=== PATIENT | male | born 1970 | race American Indian/Alaskan Native ===

== ENCOUNTER 2016-07-28 15:05 | Emergency (ER) | payer MEDICARE, OTHER ==
--- NOTE | 2016-07-28 15:13 | ED PDOC ---
Arrival/HPI - General Time Seen by Provider: 07/28/16 15:05 Historian: Patient, EMS - History of Present Illness Narrative History of Present Illness (Text): 07/28/16 15:10 45 y/o male, pmh including htn/hyperlipidemia/dm/pancreatitis with surgery about [address] [facility] in [place], [place], nkda, biba c/o lt. sided abdominal pain x 1 day with no fall or trauma. Pt. stated that he had 2- 3 shots of rum last night, woke up this morning with the acute onset of the lt. sided upper abdominal pain with nausea and vomiting but no gross hemoptysis, no fever or chills, no urinary symptoms, no dizziness, no other medical or psychological complaints. \\ Past Medical History - Provider Review Nursing Documentation Reviewed: Yes Family/Social History - Physician Review Nursing Documentation Reviewed: Yes Family/Social History: Unknown Family HX Allergies/Home Meds Allergies/Adverse Reactions: Allergies No Known Allergies Allergy (Verified 07/28/16 15:11) Home Medications: Home Meds Medication Instructions Recorded Confirmed Insulin Aspart [Novolog Flexpen] 35 units SUBCUT QAM 07/28/16 07/28/16 Insulin Glargine, Recombina 35 units SUBCUT HS 07/28/16 07/28/16 [Lantus] Lisinopril [Zestril] 2.5 mg PO DAILY 07/28/16 07/28/16 Metformin ER [Glucophage XR] 500 mg PO DAILY 07/28/16 07/28/16 Simvastatin 10 mg PO HS 07/28/16 07/28/16 Review of Systems - Review of Systems Constitutional: absent: Fatigue, Fevers Eyes: absent: Vision Changes ENT: absent: Hearing Changes Respiratory: absent: Cough, Sputum Cardiovascular: absent: Chest Pain Gastrointestinal: Abdominal Pain, Nausea, Vomiting. absent: Constipation, Diarrhea Musculoskeletal: absent: Arthralgias, Back Pain, Neck Pain, Joint Swelling, Myalgias Skin: absent: Rash, Pruritis, Skin Lesions, Laceration, Abscess, Ulcer, Cellulitis Neurological: absent: Headache, Dizziness, Focal Weakness, Gait Changes, Speech Changes, Facial Droop, Disequilibrium, Seizure Psychiatric: absent: Anxiety, Depression, Suicidal Ideation Physical Exam Vital Signs Temp Pulse Resp BP Pulse Ox 07/28/16 19:32 80 16 98 07/28/16 19:31 98.1 F 80 16 150/81 99 07/28/16 15:15 97.7 F 77 18 153/93 H 99 Pain Distress: Severe Mental Status: Positive for: Alert and Oriented X 3 - Systems Exam Head: Present: Atraumatic, Normocephalic Pupils: Present: PERRL Extroacular Muscles: Present: EOMI Conjunctiva: Present: Normal Mouth: Present: Moist Mucous Membranes Neck: Present: Normal Range of Motion Respiratory/Chest: Present: Clear to Auscultation, Good Air Exchange. No: Respiratory Distress, Accessory Muscle Use Cardiovascular: Present: Regular Rate and Rhythm, Normal S1, S2. No: Murmurs Abdomen: Present: Tenderness (Lt. sided tenderness ), Normal Bowel Sounds, Rebound (Lt. sided tenderness ), Scars (visible surgical scars noted on the anterior abdomen region with no signs of infection). No: Distention, Peritoneal Signs Back: Present: Normal Inspection Upper Extremity: Present: Normal Inspection. No: Cyanosis, Edema Lower Extremity: Present: Normal Inspection. No: Edema Neurological: Present: GCS=15, Speech Normal, Motor Func Grossly Intact, Gait Normal, Memory Normal Skin: Present: Warm, Dry, Normal Color. No: Rashes Lymphatic: No: Cervical Adenopathy Psychiatric: Present: Alert, Oriented x 3, Normal Insight, Normal Concentration Medical Decision Making ED Course and Treatment: 07/28/16 15:13 -labs/lipase/ua -CT abdomen and pelvis -IVF/morphine/zofran/pepcid -Observe and reassess 07/28/16 15:58 -Labs are non-significant except lipase 451 -Chest x-ray show no acute findings. -Pending CT abdomen and pelvis. 07/28/16 17:00 -Pt. still has pain, morphine 4mg IV ordered. -Pending CT abdomen and pelvis result. 07/28/16 17:52 -CT abdomen and pelvis show chronic pancreatitis vs. gastritis vs. duodenitis vs. pepcid ulcer vs. liver lesion (benign vs. malignant) vs. diverticular without diverticulitis. -I discussed the CT results in full detail with the patient including about possible malignant lesions which he has to follow up with the GI. -Pt. request more medication, GI Cocktail ordered. -IVF finished, will continue. 07/28/16 18:56 -Pt. stated that he feels better now but not completely relief, stated that he has to go and doesn't wanna wait for further evaluation including admission with GI consult. Pt. stated that today is his son's birthday which he wants to go but only need pain medication. Pt. stated that he has this pain frequently and knows how to treat pancreatitis at home as he has frequently pancreatitis. -I reviewed the [facility] report which I am unable to locate this patient's record. I will give PPI/zofran/percocet with clear fluid diet plus strict direction to follow up with the GI and return to the ER if he wishes to continue the care. AMA ER The patient refuses to stay in the Emergency Room (ER) to continue the care and wishes to leave the emergency department against my medical advice. Patient was told that staying in the ER is necessary and a full explanation of the reasons why was given, and understood by the patient with alert and oriented x4. The risk of leaving were explained in laymans term and including but not limited gastric perforation, gastrointestinal bleeding, cancer, tumors, dehydration, diabetic ketoacidosis, pain, worsening of condition, permanent disability and from an undiagnosed or untreated condition. The patient accepts these risks, and is in my judgment is competent and capable of understanding the clinical situation and explanation of the risk of leaving. Patient was given the opportunity to ask questions and change mind. The patient was instructed regarding the best care for the present symptoms, and to follow up as soon as possible with the primary care doctor including specialist or return to the emergency department at an y time for continuing care. YOU ARE OFFER TO BE ADMITTED TO THE HOSPITAL FOR FURTHER EVALUATION BUT YOU DECLINED. YOU ARE GIVEN PROTONIX/ZOFRAN/PERCOCET FOR YOUR CONDITION BUT YOU HAVE TO FOLLOW UP WITH YOUR OWN PMD AND GI WITHIN 1-2 DAYS. YOU MAY RETURN TO THE ER ANY TIME IF YOU WISHES TO CONTINUE THE MEDICAL CLEAR. CLEAR FLUID DIET AND AVOID SMOKING/DRINKING/HIGH CARB DIET. 07/28/16 20:09 - Lab Interpretations Lab Results: 07/28/16 15:30 07/28/16 15:30 Lab Results 07/28/16 15:30: WBC 7.5, RBC 4.88, Hgb 15.5, Hct 43.7, MCV 89.5, MCH 31.8, MCHC 35.5, RDW 13.8, Plt Count 255, MPV 10.9, Gran % 76.8 H, Lymph % (Auto) 17.4 L, Garrard % (Auto) 5.4, Eos % (Auto) 0.3 L, Baso % (Auto) 0.1, Gran # 5.73, Lymph # 1.3, Garrard # 0.4, Eos # 0.0, Baso # 0.01, Sodium 137, Potassium 4.1, Chloride 101 , Carbon Dioxide 27, Anion Gap 13, BUN 17, Creatinine 0.8, Est GFR ( Amer ) > 60, Est GFR (Non-Af Amer) > 60, Random Glucose 145 H, Calcium 8.8, Magnesium 1.8, Total Bilirubin 0.9, AST 33, ALT 47, Alkaline Phosphatase 73, Total Protein 7.3, Albumin 3.7, Globulin 3.7, Albumin/Globulin Ratio 1.0 L, Amylase 130 H, Lipase 451 H, Alcohol, Quantitative < 10 07/28/16 15:27: POC Glucose (mg/dL) 159 H Interpretation: Abnormal lab values (lipase 451) - RAD Interpretation Radiology Orders: 07/28/16 15:14 ABD & PELVIS IV CONTRAST ONLY [CT] Stat 07/28/16 15:16 CHEST PORTABLE [RAD] Stat Chest x-ray: no active disease CT abdomen and pelvis: PROCEDURE: CT Abdomen and pelvis dated 07/28/2016. . HISTORY: Lt. upper quadrant pain x 1 day, pancreatitis hist COMPARISON: None. TECHNIQUE: Contiguous axial images of the abdomen and pelvis performed in standard fashion following oral and intravenous injection of approximately 98 cc of Omnipaque 350 contrast material. Additional 2 dimensional sagittal and coronal reformats provided. Radiation dose: Total exam DLP = 907.28 mGy-cm. This CT exam was performed using one or more of the following dose reduction techniques: Automated exposure control, adjustment of the mA and/or kV according to patient size, and/or use of iterative reconstruction technique. FINDINGS: LOWER THORAX: Lung bases are clear. No infiltrate effusion or pneumothorax. There appears to be a tiny hiatal hernia. Heart size is within range of normal. No pericardial effusion. LIVER: Liver is enlarged measuring approximately 20.5 cm in CC dimension. Liver exhibits slightly heterogeneous low attenuation suggesting fatty hepatic infiltration however other infiltrative hepatocellular disease process not excluded. There is a small approximately at 2.1 x 1.3 cm elliptical shaped low- attenuation focus within the right lobe of the liver with Hounsfield units in the mid 40s ; of uncertain etiology. There appears to be a tiny calcification along the posterior border of this low-attenuation focus which is of uncertain etiology. Follow-up dedicated triple phase CT scan the liver recommended for further evaluation to distinguish benign versus malignant pathology GALLBLADDER AND BILE DUCTS: Gallbladder is physiologically distended. No evidence of intraluminal gallbladder calculi. PANCREAS: The pancreatic duct distally is markedly ectatic and dilated possibly related to sequela of chronic pancreatitis. There is also a localized area of diminished pancreatic parenchyma in the midbody region which on could conceivably represent sequela of surgery given the patient's history of same. Clinical correlation recommended with surgical history is therefore recommended. . No definitive on evidence of acute pancreatitis seen at this time. SPLEEN: Spleen exhibits normal size and attenuation pattern without mass collection or calcification. ADRENALS: Slightly prominent left adrenal gland. KIDNEYS AND URETERS: Kidneys exhibit symmetric nephrograms. No evidence of nephrolithiasis or hydronephrosis. No obvious renal mass or collection. BLADDER: Urinary bladder is incompletely distended which may account for thick-walled appearance. Muscular hypertrophy may contribute. Possibility of cystitis not excluded. REPRODUCTIVE: Prostate gland measures approximately 5.3 cm in transverse dimension. Prostatic calcifications are present. Correlation with PSA recommended as well. APPENDIX: Normal-appearing appendix. BOWEL: Evaluation of the bowel is somewhat limited due to the lack of oral contrast material. Marked thickening and possibly at edema within the wall of the distal stomach/pyloric region and proximal duodenum. Findings suggest the an inflammatory process such is a gastritis/duodenitis. Peptic ulcer or other intrinsic/ invasive wall lesion cannot be excluded. Endoscopy is recommended. . No evidence of acute mechanical small bowel obstruction. Stool and air seen throughout the colon. . There does appear to be a few scattered colonic diverticula along the sigmoid colon with mild wall thickening which could be due to some combination of underdistention peristalsis and adherent under opacified stool. No obvious inflammatory changes seen within the adjacent mesentery to suggest acute diverticulitis at this time. PERITONEUM: No gross free intraperitoneal air. No free or loculated fluid collections. Tiny fat containing umbilical hernia. LYMPH NODES: No significant bulky lymphadenopathy. VASCULATURE: No evidence of abdominal aortic aneurysm. BONES: No fracture or destructive lesion. OTHER FINDINGS: None. IMPRESSION: Marked wall thickening and or edema distal stomach and proximal duodenum on suggesting a gastritis/duodenitis on however peptic ulcer and or other intrinsic /invasive wall lesion not excluded. Recommend followup bulla endoscopy. There is also abnormality of the mid body of the pancreas dilatation of the pancreatic duct at the level of the mid and distal body region likely related to sequela of chronic pancreatitis. Mild hepatomegaly with suspected fatty infiltration however other infiltrative hepatocellular disease process not excluded. Small elliptical shaped low-attenuation lesion within the medial aspect right lobe liver accessory small calcification along posterior border. This focus is of uncertain etiology however recommend triple phase CT scan of the liver to distinguish benign versus malignant pathology. There are a few small colonic diverticula along the sigmoid colon with slight wall thickening likely due to some combination of underdistention, peristalsis and possibly some adherent under opacified stool. The possibility of muscular hypertrophy may contribute. No obvious inflammatory changes in the adjacent mesentery to suggest acute diverticulitis at this time. Clinic correlation recommended. Note all these findings were discussed with emergency room DARIUS Dumont at approximately 5:30 p.m. with written down and read back verification. . Delivery Rep: Radiologist - Medication Orders Current Medication Orders: Discontinued Medications Al Hydrox/Mg Hydrox/Simethicone (Maalox Plus 30 Ml) 30 ml PO STAT STA Stop: 07/28/16 17:52 Last Admin: 07/28/16 18:15 Dose: 30 ML Dicyclomine HCl (Bentyl) 20 mg PO STAT STA Stop: 07/28/16 17:52 Last Admin: 07/28/16 18:15 Dose: 20 MG Famotidine (Pepcid) 20 mg IVP STAT STA Stop: 07/28/16 15:15 Last Admin: 07/28/16 15:32 Dose: 20 MG IVP Administration Document 07/28/16 15:32 [email or web address] (Rec: 07/28/16 15:33 [email or web address] [id number]) Charges for Administration # of IVP Administrations 1 Sodium Chloride (Sodium Chloride 0.9%) 1,000 mls @ 999 mls/hr IV .Q1H1M STA Stop: 07/28/16 16:14 Last Admin: 07/28/16 15:33 Dose: 999 MLS/HR eMAR Start Stop Document 07/28/16 15:33 [email or web address] (Rec: 07/28/16 15:[address]- ATTEND) Intravenous Solution Start Date 07/28/16 Start Time 15:33 End Date 07/28/16 Sodium Chloride (Sodium Chloride 0.9%) 1,000 mls @ 100 mls/hr IV .Q10H DENNISE Last Admin: 07/28/16 18:04 Dose: 100 MLS/HR eMAR Start Stop Document 07/28/16 18:04 [email or web address] (Rec: 07/28/16 18:04 [place] [id number]- ATTEND) Intravenous Solution Start Date 07/28/16 Start Time 18:04 End Date 07/28/16 Iohexol (Omnipaque 350 100 Ml) Confirm Administered Dose 350 mg .ROUTE .STK-MED ONE Stop: 07/28/16 16:18 Lidocaine HCl (Lidocaine 2% Viscous) 15 ml PO STAT STA Stop: 07/28/16 17:52 Last Admin: 07/28/16 18:15 Dose: 15 ML Morphine Sulfate (Morphine) 4 mg IVP STAT STA Stop: 07/28/16 15:15 Last Admin: 07/28/16 15:31 Dose: 4 MG MAR Pain Assessment Document 07/28/16 15:31 [email or web address] (Rec: 07/28/16 15:32 [place] [id number]- ATTEND) Pain Reassessment Is this a pain reassessment? No Sleep Is patient sleeping during reassessment? No Presence of Pain Presence of Pain Yes Pain Scale Used Pain Scale Used Numeric Location Pain Location Body Site Abdomen Description Description Constant Intensity of Pain at present 9 Pain Behavior Facial Grimacing Aggravating Factors Changing Position Alleviating Factors/Management Position Change Techniques Alleviating Factors Medication IVP Administration Document 07/28/16 15:31 [email or web address] (Rec: 07/28/16 15:32 [place] [id number]- ATTEND) Charges for Administration # of IVP Administrations 1 Morphine Sulfate (Morphine) 4 mg IVP STAT STA Stop: 07/28/16 17:01 Last Admin: 07/28/16 17:09 Dose: 4 MG MAR Pain Assessment Document 07/28/16 17:09 [facility] (Rec: 07/28/16 17:09 [place] [id number]- ATTEND) Pain Reassessment Is this a pain reassessment? No Sleep Is patient sleeping during reassessment? No Presence of Pain Presence of Pain Yes Pain Scale Used Pain Scale Used Numeric Location Pain Location Body Site Abdomen Description Description Constant Intensity of Pain at present 6 Pain Behavior Facial Grimacing Aggravating Factors Changing Position Alleviating Factors/Management Position Change Techniques Alleviating Factors Medication IVP Administration Document 07/28/16 17:09 [facility] (Rec: 07/28/16 17:09 [place] [id number]- ATTEND) Charges for Administration # of IVP Administrations 1 Ondansetron HCl (Zofran Inj) 4 mg IVP STAT STA Stop: 07/28/16 15:15 Last Admin: 07/28/16 15:33 Dose: 4 MG IVP Administration Document 07/28/16 15:33 [facility] (Rec: 07/28/16 15:33 [place] [id number]- ATTEND) Charges for Administration # of IVP Administrations 1 Oxycodone/Acetaminophen (Percocet 5/325 Mg Tab) 2 tab PO STAT STA Stop: 07/28/16 18:57 Last Admin: 07/28/16 19:30 Dose: 2 TAB - PA / BUS GREASER / Resident Statement MD/DO has reviewed & agrees with the documentation as recorded. Disposition/Present on Arrival - Present on Arrival Any Indicators Present on Arrival: No History of DVT/PE: No History of Uncontrolled Diabetes: No Urinary Catheter: No History of Decub. Ulcer: No - Disposition Have Diagnosis and Disposition been Completed?: Yes Diagnosis: Pancreatitis, Liver lesion, Diverticulitis, Gastritis, Diverticula of colon, Non-compliance with treatment Disposition: HOME/ ROUTINE Disposition Time: 19:06 Condition: IMPROVED Additional Instructions: YOU ARE OFFER TO BE ADMITTED TO THE HOSPITAL FOR FURTHER EVALUATION BUT YOU DECLINED. YOU ARE GIVEN PROTONIX/ZOFRAN/PERCOCET FOR YOUR CONDITION BUT YOU HAVE TO FOLLOW UP WITH YOUR OWN PMD AND GI WITHIN 1-2 DAYS. YOU MAY RETURN TO THE ER ANY TIME IF YOU WISHES TO CONTINUE THE MEDICAL CLEAR. CLEAR FLUID DIET AND AVOID SMOKING/DRINKING/HIGH CARB DIET. Prescriptions: oxyCODONE/Acetaminophen [Percocet 5/325 mg Tab] 1 tab PO Q6 PRN #10 tab PRN Reason: Other Pantoprazole Sodium [Protonix] 40 mg PO DAILY #14 tablet. Ondansetron [Zofran Odt] 4 mg PO TID PRN #12 tab.rapdis PRN Reason: Other Referrals: PCP,NO [Primary Care Provider] - Follow up with primary Erwin Germain DO [Staff Provider] - Follow up with primary [facility] [place]] - Follow up with primary Forms: WORK NOTE
[2016-07-28] MEDS ORDERED: Morphine 4 mg/ml ISec IVP STA ×2 (15:14→17:00)
[2016-07-28] MEDS ORDERED: Sodium Chloride 0.9% 1,000 ML IV STA (15:14)
[2016-07-28 15:34] LABS: ADD MANUAL DIFF? NO
[2016-07-28 15:37] LABS: BASO # 0.01 K/mm3 (0.0-2.0); BASO % 0.1 % (0.0-3.0); EOS % 0.3 % (1.5-5.0); GRAN # 5.73 (1.4-6.5); GRAN % 76.8 % (50.0-68.0); HEMATOCRIT 43.7 % (42.0-52.0); LYMPH # 1.3 (1.2-3.4); LYMPH % 17.4 % (22.0-35.0); MEAN CELL VOLUME 89.5 fL (80.0-105.0); MEAN CORPUSCULAR HEMOGLOBIN 31.8 pg (25.0-35.0); MEAN CORPUSCULAR HGB CONC 35.5 g/dl (31.0-37.0); MEAN PLATELET VOLUME 10.9 fl (7.0-11.0); MONO # 0.4 (0.1-0.6); MONO % 5.4 % (1.0-6.0); PLATELET COUNT 255 10^3/uL (120.0-450.0); RED CELL DISTRIBUTION WIDTH 13.8 % (11.5-14.5); WHITE BLOOD COUNT 7.5 10^3/ul (4.5-11.0)
--- NOTE | 2016-07-28 15:39 | RAD ---
HISTORY: medical clearance COMPARISON: No prior. FINDINGS: LUNGS: No active pulmonary disease. PLEURA: No significant pleural effusion identified, no pneumothorax apparent. CARDIOVASCULAR: Normal. OSSEOUS STRUCTURES: No significant abnormalities. VISUALIZED UPPER ABDOMEN: Normal. OTHER FINDINGS: None. IMPRESSION: No active disease.
[2016-07-28 15:49] LABS: ALKALINE PHOSPHATASE 73 U/L (38-133); ALT/SGPT 47 U/L (7-56); AMYLASE 130 U/L (35-125); AST/SGOT 33 U/L (15-59); BILIRUBIN,TOTAL 0.9 mg/dL (0.2-1.3); BLOOD UREA NITROGEN 17 mg/dL (7-21); CALCIUM 8.8 mg/dL (8.4-10.5); CARBON DIOXIDE 27 mmol/L (21-33); CHLORIDE 101 mmol/L (98-107); GFR AFRICAN-AMERICAN > 60; GLUCOSE,RANDOM 145 mg/dL (70-110); LIPASE 451 U/L (23-300); MAGNESIUM 1.8 mg/dL (1.7-2.2); POTASSIUM 4.1 mmol/L (3.6-5.0); SODIUM 137 mmol/L (132-148); TOTAL PROTEIN 7.3 g/dL (5.8-8.3)
[2016-07-28] MEDS ORDERED: Iohexol 350 MG/100 ML VIAL ONE (16:17)
--- NOTE | 2016-07-28 17:48 | CT ---
PROCEDURE: CT Abdomen and pelvis dated 07/28/2016. . HISTORY: Lt. upper quadrant pain x 1 day, pancreatitis hist COMPARISON: None. TECHNIQUE: Contiguous axial images of the abdomen and pelvis performed in standard fashion following oral and intravenous injection of approximately 98 cc of Omnipaque 350 contrast material. Additional 2 dimensional sagittal and coronal reformats provided. Radiation dose: Total exam DLP = 907.28 mGy-cm. This CT exam was performed using one or more of the following dose reduction techniques: Automated exposure control, adjustment of the mA and/or kV according to patient size, and/or use of iterative reconstruction technique. FINDINGS: LOWER THORAX: Lung bases are clear. No infiltrate effusion or pneumothorax. There appears to be a tiny hiatal hernia. Heart size is within range of normal. No pericardial effusion. LIVER: Liver is enlarged measuring approximately 20.5 cm in CC dimension. Liver exhibits slightly heterogeneous low attenuation suggesting fatty hepatic infiltration however other infiltrative hepatocellular disease process not excluded. There is a small approximately at 2.1 x 1.3 cm elliptical shaped low-attenuation focus within the right lobe of the liver with Hounsfield units in the mid 40s ; of uncertain etiology. There appears to be a tiny calcification along the posterior border of this low-attenuation focus which is of uncertain etiology. Follow-up dedicated triple phase CT scan the liver recommended for further evaluation to distinguish benign versus malignant pathology GALLBLADDER AND BILE DUCTS: Gallbladder is physiologically distended. No evidence of intraluminal gallbladder calculi. PANCREAS: The pancreatic duct distally is markedly ectatic and dilated possibly related to sequela of chronic pancreatitis. There is also a localized area of diminished pancreatic parenchyma in the midbody region which on could conceivably represent sequela of surgery given the patient's history of same. Clinical correlation recommended with surgical history is therefore recommended. . No definitive on evidence of acute pancreatitis seen at this time. SPLEEN: Spleen exhibits normal size and attenuation pattern without mass collection or calcification. ADRENALS: Slightly prominent left adrenal gland. KIDNEYS AND URETERS: Kidneys exhibit symmetric nephrograms. No evidence of nephrolithiasis or hydronephrosis. No obvious renal mass or collection. BLADDER: Urinary bladder is incompletely distended which may account for thick-walled appearance. Muscular hypertrophy may contribute. Possibility of cystitis not excluded. REPRODUCTIVE: Prostate gland measures approximately 5.3 cm in transverse dimension. Prostatic calcifications are present. Correlation with PSA recommended as well. APPENDIX: Normal-appearing appendix. BOWEL: Evaluation of the bowel is somewhat limited due to the lack of oral contrast material. Marked thickening and possibly at edema within the wall of the distal stomach/pyloric region and proximal duodenum. Findings suggest the an inflammatory process such is a gastritis/duodenitis. Peptic ulcer or other intrinsic/ invasive wall lesion cannot be excluded. Endoscopy is recommended. . No evidence of acute mechanical small bowel obstruction. Stool and air seen throughout the colon. . There does appear to be a few scattered colonic diverticula along the sigmoid colon with mild wall thickening which could be due to some combination of underdistention peristalsis and adherent under opacified stool. No obvious inflammatory changes seen within the adjacent mesentery to suggest acute diverticulitis at this time. PERITONEUM: No gross free intraperitoneal air. No free or loculated fluid collections. Tiny fat containing umbilical hernia. LYMPH NODES: No significant bulky lymphadenopathy. VASCULATURE: No evidence of abdominal aortic aneurysm. BONES: No fracture or destructive lesion. OTHER FINDINGS: None. IMPRESSION: Marked wall thickening and or edema distal stomach and proximal duodenum on suggesting a gastritis/duodenitis on however peptic ulcer and or other intrinsic/invasive wall lesion not excluded. Recommend followup bulla endoscopy. There is also abnormality of the mid body of the pancreas dilatation of the pancreatic duct at the level of the mid and distal body region likely related to sequela of chronic pancreatitis. Mild hepatomegaly with suspected fatty infiltration however other infiltrative hepatocellular disease process not excluded. Small elliptical shaped low-attenuation lesion within the medial aspect right lobe liver accessory small calcification along posterior border. This focus is of uncertain etiology however recommend triple phase CT scan of the liver to distinguish benign versus malignant pathology. There are a few small colonic diverticula along the sigmoid colon with slight wall thickening likely due to some combination of underdistention, peristalsis and possibly some adherent under opacified stool. The possibility of muscular hypertrophy may contribute. No obvious inflammatory changes in the adjacent mesentery to suggest acute diverticulitis at this time. Clinic correlation recommended. Note all these findings were discussed with emergency room DARIUS Dumont at approximately 5:30 p.m. with written down and read back verification. .
[2016-07-28] MEDS ORDERED: Alum-Mag Hydrox-Simethicone Susp (30 mL) PO STA (17:51)
[2016-07-28] MEDS ORDERED: Sodium Chloride 0.9% 1,000 ML IV SCH (18:00)
[2016-07-28] MEDS ORDERED: Oxycodone/Acetaminophen 5/325 mg Tab PO STA (18:56)
[2016-07-28 19:32] VITALS: BP 150/81; PULSE 80; RESP 16; TEMP 98.1
[2016-07-28 19:33] VITALS: O2SAT 98
== END 2016-07-28 19:38 | disposition home or self-care (01) ==
LOC: ED 15:05
DX: K85.90 Acute pancreatitis without necrosis or infection, unspecified (principal); K76.9 Liver disease, unspecified; K29.70 Gastritis, unspecified, without bleeding; Z91.19 Patient's noncompliance with other medical treatment and regimen; K57.30 Diverticulosis of large intestine without perforation or abscess without bleeding; K57.92 Diverticulitis of intestine, part unspecified, without perforation or abscess without bleeding; I10 Essential (primary) hypertension; E78.5 Hyperlipidemia, unspecified; E11.9 Type 2 diabetes mellitus without complications
CPT/HCPCS: 71010; 74177; 80053; 82150; 82948; 83690; 83735; 85025; 96374; 96375; 96376; 99284; G0480; J2270; J2405; J7040; Q9967